=== PATIENT | female | born 1990 | race African-American/Black ===

== ENCOUNTER 2016-07-09 13:42 | Emergency (ER) | payer MEDICAID ==
[~2016-07-09] VITALS: Ht 154.9 cm; Wt 75.0 kg
[~2016-07-09 13:42] MED LIST: ABILIFY 10MG TA10 MG PO; BACTRIM DS 8001 TAB PO; BCP TD; BIRTH CONTROL PILLS; CALCIUM1 CAP PO; CEFTIN500 MG PO; CELEXA; CELEXA10 MG; CELEXA10 MG PO; CIPRO 500MG TA500 MG PO; CLARITIN 1010 MG/TAB PO; CONCERTA; CONCERTA18 MG; CONSERTA; FERATE27 MG PO; FLAGYL250 MG PO; FLAGYL500 MG PO; FLEXERIL 1010 MG/TAB PO; FOCALIN2.5 MG PO; GEODON40 MG PO; IMITREX 25MG TA25 MG PO; IRON 27 MG PO; IRON1 POW; IRON325 MG PO; LAMICTAL150 MG PO; LEVAQUIN 250MG250 MG PO; LORTAB 5/500 501 TAB PO; MACRODANTIN100 PO; METRONIDAZOLE500 MG PO; MOTRIN 600600 MG/TAB PO; NO HOME MEDICATIONS; PAMELOR PO; PRENATAL VITAMI1 T12 PO; PRENATAL1 TA3 PO; PROVENTIL0.09 MG/A1 IH; TRILEPTAL 150M150 MG PO; TRILEPTAL600 MG PO; ULTRAM 50MG TAB50 MG PO; VALTREX1 GM PO; WELLBUTRIN XL150 MG PO; ZITHROMAX Z PA250 MG PO; ZOFRAN4 MG PO; ZYRTEC 10MG10 MG PO; [UNRECOGNIZED DRUG - OTHER]
[2016-07-09 13:49] VITALS: BP 123/86; TEMP 98.2
[2016-07-09 14:46] LABS: BASO # 0.1 (0.0-0.2); BASO % 1.1 % (0.0-2.0); EOS % 0.5 % (0-4.0); GRAN # 2.6 (1.4-6.5); GRAN % 44.7 % (42.2-75.2); HEMATOCRIT 42.1 % (37.0-47.0); HEMOGLOBIN 13.9 g/dl (12.5-16.0); LYMPH # 2.6 (1.2-3.4); LYMPH % 45.9 % (20.0-51.0); MEAN CELL VOLUME 88 fl (80.0-100.0); MEAN CORPUSCULAR HEMOGLOBIN 29 pg (27.0-31.0); MEAN CORPUSCULAR HGB CONC 33 g/dl (33.0-37.0); MEAN PLATELET VOLUME 9.6 fl (7.4-10.4); MONO # 0.4 (0.1-0.6); MONO % 7.6 % (1.7-9.3); PLATELET COUNT 321 K/mm3 (130-400); RED BLOOD COUNT 4.81 M/mm3 (4.10-5.30); REDCELL DISTRIBUTION WIDTH-CV 13.2 % (11.5-14.5); WHITE BLOOD COUNT 5.7 K/mm3 (4.8-10.8)
[2016-07-09 14:57] LABS: AMPHETAMINE URINE NEGATIVE; BARBITURATES URINE NEGATIVE; BENZODIAZEPINES URINE NEGATIVE; BUPRENORPHINE URINE NEGATIVE; METHADONE URINE NEGATIVE; OPIATES URINE NEGATIVE; OXYCODONE URINE NEGATIVE; PHENCYCLIDINE URINE NEGATIVE; PROPOXYPHENE URINE NEGATIVE; THC CANNABINOIDS URINE NEGATIVE
[2016-07-09 15:06] LABS: ANION GAP 13 mmol/L (7-16); BLOOD UREA NITROGEN 11 mg/dL (7-17); CALCIUM 9.6 mg/dL (8.4-10.2); CARBON DIOXIDE 28 mmol/L (22-30); CHLORIDE 105 mmol/L (98-107); GLUCOSE 86 mg/dL (74-106); SODIUM 146 mmol/L (137-145)
[2016-07-09 15:16] LABS: ACETAMINOPHEN < 10 ug/mL (10-30); SALICYLATE < 1.0 mg/dL
[2016-07-09 18:09] VITALS: PULSE 74
== END 2016-07-09 18:10 | disposition home or self-care (01) ==
LOC: COL.ER 13:42
PROVIDERS: Nurse Practitioner
DX: R45.851 Suicidal ideations (principal); F60.9 Personality disorder, unspecified; F32.2 Major depressive disorder, single episode, severe without psychotic features

== ENCOUNTER 2018-05-19 13:16 | Emergency (ER) | payer MEDICAID ==
[~2018-05-19] VITALS: Ht 154.9 cm; Wt 85.9 kg
[2018-05-19 13:29] VITALS: BP 114/78; TEMP 98.2
[2018-05-19] MEDS ORDERED: PROAIR HFA0.09 MG/AC IH (14:43)
[2018-05-19] MEDS ORDERED: ZITHROMAX Z PA250 MG PO (14:43)
[2018-05-19] MEDS ORDERED: PREDNISONE20 MG PO (14:43)
[2018-05-19 14:52] VITALS: PULSE 76
== END 2018-05-19 14:52 | disposition home or self-care (01) ==
LOC: COL.ER 13:16
DX: J45.909 Unspecified asthma, uncomplicated (principal); F17.210 Nicotine dependence, cigarettes, uncomplicated; Z90.89 Acquired absence of other organs

== ENCOUNTER 2019-07-30 02:59 | Emergency (ER) | payer MEDICAID ==
[~2019-07-30] VITALS: Ht 177.8 cm; Wt 86.4 kg
[~2019-07-30 02:59] MED LIST changes: +PREDNISONE20 MG PO; +PROAIR HFA0.09 MG/AC IH
[2019-07-30 03:02] VITALS: BP 107/70; TEMP 97.7
[2019-07-30 04:03] VITALS: PULSE 79
== END 2019-07-30 04:07 | disposition home or self-care (01) ==
LOC: COL.ER 02:59
DX: S90.32XA Contusion of left foot, initial encounter (principal); M25.561 Pain in right knee; W01.0XXA Fall on same level from slipping, tripping and stumbling without subsequent striking against object, initial encounter

== ENCOUNTER 2019-12-09 20:48 | Emergency (ER) | payer MEDICAID ==
[~2019-12-09] VITALS: Ht 157.5 cm; Wt 84.1 kg
[2019-12-09 20:48] VITALS: TEMP 99.2
[2019-12-09 21:54] LABS: BASO % 0.4 % (0.0-2.0); EOS % 0.4 % (0-4.0); GRAN # 6.2 (1.4-6.5); HEMATOCRIT 39.7 % (37.0-47.0); HEMOGLOBIN 12.9 g/dl (12.5-16.0); LYMPH # 1.2 (1.2-3.4); LYMPH % 15.7 % (20.0-51.0); MEAN CELL VOLUME 89 fl (80.0-100.0); MEAN CORPUSCULAR HEMOGLOBIN 29 pg (27.0-31.0); MEAN CORPUSCULAR HGB CONC 33 g/dl (33.0-37.0); MEAN PLATELET VOLUME 9.7 fl (7.4-10.4); MONO # 0.3 (0.1-0.6); MONO % 4.4 % (1.7-9.3); PLATELET COUNT 240 K/mm3 (130-400); RED BLOOD COUNT 4.48 M/mm3 (4.10-5.30); REDCELL DISTRIBUTION WIDTH-CV 13.2 % (11.5-14.5)
[2019-12-09 22:17] LABS: ALANINE AMINOTRANSFERASE 30 U/L (4-34); ALBUMIN 4.5 gm/dL (3.5-5.0); ALCOHOL(ethanol),MEDICAL 144 mg/dL; ALKALINE PHOSPHATASE 138 U/L (50-136); ANION GAP 14 mmol/L (7-16); AST,SGOT 66 U/L (15-37); BILIRUBIN,TOTAL 0.3 mg/dL (0.0-1.0); BLOOD UREA NITROGEN 10 mg/dL (7-17); CALCIUM 9.8 mg/dL (8.4-10.2); CARBON DIOXIDE 18 mmol/L (22-30); CHLORIDE 111 mmol/L (98-107); CREATININE, serum 1.15 (0.52-1.25); GLUCOSE 96 mg/dL (74-106); POTASSIUM 3.8 mmol/L (3.4-5.0); SODIUM 143 mmol/L (137-145)
[2019-12-09 22:18] LABS: ACETAMINOPHEN < 10 ug/mL (10-30); SALICYLATE < 1.0 mg/dL
[2019-12-09 22:51] LABS: COLLECTION METHOD CLEAN CATCH
[2019-12-09 23:16] LABS: TRICYCLIC ANTIDEPRESS URINE NEGATIVE
[2019-12-10 01:16] LABS: MUCOUS Present /lpf; PH 5 (5-8); URINE APPEARANCE Hazy; URINE BACTERIA None Seen /hpf; URINE BILIRUBIN Negative (NEGATIVE); URINE BLOOD 1+ (NEGATIVE); URINE COLOR Yellow; URINE GLUCOSE Negative (NEGATIVE); URINE KETONE Negative (NEGATIVE); URINE LEUKOCYTE ESTERASE Negative (NEGATIVE); URINE NITRATE Negative (NEGATIVE); URINE PROTEIN(semi-quant) 1+ (NEGATIVE); URINE RBC 0-2 /hpf; URINE UROBILINOGEN Negative (NEGATIVE)
[2019-12-10 07:22] VITALS: BP 107/71; PULSE 81
== END 2019-12-10 07:28 | disposition home or self-care (01) ==
LOC: COL.ER 21:35
PROVIDERS: Emergency Medicine
DX: F29 Unspecified psychosis not due to a substance or known physiological condition (principal); F10.129 Alcohol abuse with intoxication, unspecified; Y90.6 Blood alcohol level of 120-199 mg/100 ml
CPT/HCPCS: J1200; J1630

== ENCOUNTER 2020-02-03 11:49 | Emergency (ER) | payer MEDICAID ==
[~2020-02-03] VITALS: Ht 152.4 cm; Wt 88.6 kg
[2020-02-03 11:53] VITALS: BP 120/86; TEMP 98.2
[2020-02-03 14:10] VITALS: PULSE 83
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
== END 2020-02-03 14:10 | disposition home or self-care (01) ==
LOC: COL.ER 11:49
DX: S09.90XA Unspecified injury of head, initial encounter (principal); F17.210 Nicotine dependence, cigarettes, uncomplicated; Y04.2XXA Assault by strike against or bumped into by another person, initial encounter

== ENCOUNTER 2020-07-24 09:45 | Emergency (ER) | payer MEDICAID ==
[~2020-07-24] VITALS: Ht 152.4 cm; Wt 80.5 kg
[2020-07-24 10:03] VITALS: BP 127/73; TEMP 98.1
[2020-07-24 10:31] LABS: COLLECTION METHOD CLEAN CATCH
[2020-07-24 10:46] LABS: MUCOUS Present /lpf; PH 6 (5-8); URINE APPEARANCE Hazy; URINE BACTERIA None Seen /hpf; URINE BILIRUBIN Negative (NEGATIVE); URINE BLOOD Negative (NEGATIVE); URINE COLOR Yellow; URINE GLUCOSE Negative (NEGATIVE); URINE KETONE Trace (NEGATIVE); URINE LEUKOCYTE ESTERASE 2+ (NEGATIVE); URINE NITRATE Negative (NEGATIVE); URINE PROTEIN(semi-quant) Negative (NEGATIVE); URINE UROBILINOGEN Negative (NEGATIVE)
[2020-07-24] MEDS ORDERED: FLAGYL500 MG PO (10:47)
[2020-07-24] MEDS ORDERED: CEPHALEXIN500 M1 PO (12:22)
[2020-07-24 12:46] VITALS: PULSE 91
== END 2020-07-24 12:47 | disposition home or self-care (01) ==
LOC: COL.ER 09:45
PROVIDERS: Physician Assistant
DX: O23.591 Infection of other part of genital tract in pregnancy, first trimester (principal); O23.41 Unspecified infection of urinary tract in pregnancy, first trimester; J45.909 Unspecified asthma, uncomplicated; F17.210 Nicotine dependence, cigarettes, uncomplicated; Z3A.01 Less than 8 weeks gestation of pregnancy; Z88.8 Allergy status to other drugs, medicaments and biological substances
CPT/HCPCS: J0696

== ENCOUNTER 2020-08-15 09:24 | Emergency (ER) | payer MEDICAID ==
[~2020-08-15] VITALS: Ht 152.4 cm; Wt 80.5 kg
[~2020-08-15 09:24] MED LIST changes: +CEPHALEXIN500 M1 PO
[2020-08-15 10:39] LABS: COLLECTION METHOD CLEAN CATCH
[2020-08-15 11:09] LABS: MUCOUS Present /lpf; PH 5 (5-8); URINE APPEARANCE Hazy; URINE BACTERIA None Seen /hpf; URINE BILIRUBIN Negative (NEGATIVE); URINE BLOOD Negative (NEGATIVE); URINE COLOR Amber; URINE GLUCOSE Negative (NEGATIVE); URINE KETONE 2+ (NEGATIVE); URINE LEUKOCYTE ESTERASE Negative (NEGATIVE); URINE NITRATE Negative (NEGATIVE); URINE PROTEIN(semi-quant) 1+ (NEGATIVE); URINE RBC 0-2 /hpf
[2020-08-15] MEDS ORDERED: MONISTAT 7 VAG45 GM VG (11:26)
[2020-08-15 11:57] VITALS: BP 117/74; PULSE 79; TEMP 98.4
== END 2020-08-15 11:57 | disposition home or self-care (01) ==
LOC: COL.ER 09:24
PROVIDERS: Nurse Practitioner Primary Care
DX: O98.811 Other maternal infectious and parasitic diseases complicating pregnancy, first trimester (principal); B37.3 Candidiasis of vulva and vagina; O26.891 Other specified pregnancy related conditions, first trimester; R10.31 Right lower quadrant pain; R10.32 Left lower quadrant pain; O99.331 Smoking (tobacco) complicating pregnancy, first trimester; F17.210 Nicotine dependence, cigarettes, uncomplicated; Z3A.09 9 weeks gestation of pregnancy; Z88.8 Allergy status to other drugs, medicaments and biological substances
CPT/HCPCS: J7030

== ENCOUNTER 2020-09-02 23:24 | Emergency (ER) | payer MEDICAID ==
[~2020-09-02] VITALS: Ht 152.4 cm; Wt 82.7 kg
[~2020-09-02 23:24] MED LIST changes: +MONISTAT 7 VAG45 GM VG
[2020-09-02 23:35] VITALS: TEMP 98.7
[2020-09-03 01:04] VITALS: BP 120/68; PULSE 68
== END 2020-09-03 00:58 | disposition home or self-care (01) ==
LOC: COL.ER 23:24
DX: O9A.211 Injury, poisoning and certain other consequences of external causes complicating pregnancy, first trimester (principal); S00.83XA Contusion of other part of head, initial encounter; S00.531A Contusion of lip, initial encounter; Z88.8 Allergy status to other drugs, medicaments and biological substances; Z3A.12 12 weeks gestation of pregnancy; Y04.8XXA Assault by other bodily force, initial encounter

== ENCOUNTER 2020-10-28 20:10 | Emergency (ER) | payer MEDICAID ==
[~2020-10-28] VITALS: Ht 152.4 cm; Wt 80.9 kg
[2020-10-28 20:36] LABS: COLLECTION METHOD CLEAN CATCH
[2020-10-28 20:45] LABS: PH 7 (5-8); URINE APPEARANCE Clear; URINE BACTERIA None Seen /hpf; URINE BILIRUBIN Negative (NEGATIVE); URINE BLOOD Negative (NEGATIVE); URINE COLOR Yellow; URINE GLUCOSE Negative (NEGATIVE); URINE KETONE Negative (NEGATIVE); URINE LEUKOCYTE ESTERASE Negative (NEGATIVE); URINE NITRATE Negative (NEGATIVE); URINE PROTEIN(semi-quant) Negative (NEGATIVE); URINE RBC 0-2 /hpf; URINE UROBILINOGEN >=4.0 mg/dL (NEGATIVE)
--- NOTE | 2020-10-28 21:30 | NUR ---
G3L3 at 20.3 weeks gestation being evaluated in the emergency room for abdominal pain. This nurse was called for a 10 minutue toco evaulation for uterine contractions. EFM explained to patient and toco applied from [id number]. No contractions noted per toco or patient reports. FHR 145 bpm per doppler.
[2020-10-29 00:18] LABS: BASO % 0.5 % (0.0-2.0); EOS # 0.1 (0.0-0.7); EOS % 2.5 % (0-4.0); GRAN # 2.1 (1.4-6.5); GRAN % 47.4 % (42.2-75.2); HEMOGLOBIN 10.7 g/dl (12.5-16.0); LYMPH # 1.8 (1.2-3.4); LYMPH % 40.1 % (20.0-51.0); MEAN CELL VOLUME 86 fl (80.0-100.0); MEAN CORPUSCULAR HEMOGLOBIN 29 pg (27.0-31.0); MEAN CORPUSCULAR HGB CONC 33 g/dl (33.0-37.0); MEAN PLATELET VOLUME 10.4 fl (7.4-10.4); MONO # 0.4 (0.1-0.6); MONO % 9.3 % (1.7-9.3); PLATELET COUNT 272 K/mm3 (130-400); RED BLOOD COUNT 3.72 M/mm3 (4.10-5.30); REDCELL DISTRIBUTION WIDTH-CV 12.9 % (11.5-14.5)
[2020-10-29 00:28] LABS: ALBUMIN 3.2 gm/dL (3.5-5.0); BILIRUBIN,TOTAL 0.3 mg/dL (0.0-1.0); C-REACTIVE PROTEIN 1.3 mg/dL (0.0-0.9); CALCIUM 8.6 mg/dL (8.4-10.2); CREATININE, serum 0.5 (0.52-1.25); POTASSIUM 3.8 mmol/L (3.4-5.0); TOTAL PROTEIN 6.2 gm/dL (6.4-8.2)
[2020-10-29 00:29] LABS: HEMATOCRIT 32.1 % (37.0-47.0)
[2020-10-29 01:09] VITALS: BP 101/63; PULSE 75; TEMP 98.5
== END 2020-10-29 01:09 | disposition home or self-care (01) ==
LOC: COL.ER 20:10
PROVIDERS: Nurse Practitioner Primary Care
DX: O26.892 Other specified pregnancy related conditions, second trimester (principal); M54.5 Low back pain; R10.9 Unspecified abdominal pain; Z3A.20 20 weeks gestation of pregnancy; Z88.8 Allergy status to other drugs, medicaments and biological substances
CPT/HCPCS: J7120

== ENCOUNTER 2020-11-21 11:30 | Outpatient (CLI) | payer MEDICAID ==
[2020-11-21] VITALS (8 sets, daily range): BP systolic 87–107; BP diastolic 50–67; PULSE 77–103; TEMP 98.3
[~2020-11-21] VITALS: Wt 81.8 kg
[2020-11-21] MEDS ORDERED: DINO-LIFE1 CTB PO (11:45)
[2020-11-21] MEDS ORDERED: LEXAPRO20 MG PO (11:45)
== END 2020-11-21 15:55 | disposition home or self-care (01) ==
LOC: LDRO 11:30 → LDR 11:35 → LDRO 15:55
DX: O91.212 Nonpurulent mastitis associated with pregnancy, second trimester (principal); Z3A.23 23 weeks gestation of pregnancy
CPT/HCPCS: OP

== ENCOUNTER 2021-03-03 11:28 | Outpatient (CLI) | payer MEDICAID ==
[~2021-03-03] VITALS: Ht 157.5 cm; Wt 83.6 kg
[~2021-03-03 11:28] MED LIST changes: +DINO-LIFE1 CTB PO; +LEXAPRO20 MG PO
--- NOTE | 2021-03-03 11:40 | NUR ---
Pt arrived on unit via wheelchair escorted by boyfriend and with complaints of contractions. Pt denies any leaking of fluid but reports some pink discharge when she goes to bathroom and reports decreased movement. EFM and toco monitors started. Vital signs WNL. SVE by this RN /-3. Audible movement noted and pt reports feeling the movement as well.
--- NOTE | 2021-03-03 11:50 | NUR ---
on the unit. FHR tracing and prenatals reviewed. Orders for labor assessment received.
[2021-03-03 12:15] VITALS: BP 111/68; PULSE 104; TEMP 98.1
== END 2021-03-03 13:00 | disposition home or self-care (01) ==
LOC: LDRO 11:28 → LDR 11:55 → LDRO 13:00
DX: O62.9 Abnormality of forces of labor, unspecified (principal); Z3A.38 38 weeks gestation of pregnancy
CPT/HCPCS: OP

== ENCOUNTER 2021-03-06 21:59 | Inpatient (IN) | payer MEDICAID ==
[~2021-03-06] VITALS: Ht 160 cm; Wt 83.6 kg
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
[2021-03-06 22:30] VITALS: BP 94/51; PULSE 115; TEMP 99.3
[2021-03-06 23:00] VITALS: PULSE 119
[2021-03-06 23:30] VITALS: PULSE 116
[2021-03-07] VITALS (31 sets, daily range): BP systolic 67–112; BP diastolic 37–76; PULSE 87–126; TEMP 97.5–98.7
[2021-03-07 00:30] LABS: HEMATOCRIT 33.8 % (37.0-47.0); HEMOGLOBIN 11.3 g/dl (12.5-16.0); MEAN CELL VOLUME 83 fl (80.0-100.0); MEAN CORPUSCULAR HEMOGLOBIN 28 pg (27.0-31.0); MEAN CORPUSCULAR HGB CONC 33 g/dl (33.0-37.0); MEAN PLATELET VOLUME 10.2 fl (7.4-10.4); PLATELET COUNT 206 K/mm3 (130-400); RED BLOOD COUNT 4.08 M/mm3 (4.10-5.30); REDCELL DISTRIBUTION WIDTH-CV 13.8 % (11.5-14.5)
[2021-03-07 00:57] LABS: BAND 20 % (0-10); LYMPHOCYTE 3 % (20.0-51.0); NEUTROPHILS 76 % (42.0-75.2); PLATELET ESTIMATE NORMAL (NORMAL)
--- NOTE | 2021-03-07 05:15 | NUR ---
0515- PATIENT CALLED OUT STATING SHE WAS FEELING LOTS OF PRESSURE AND LIKE SHE NEEDED TO PUSH. THIS RN TO BEDSIDE. SVE PATIENT IS COMPLETE AND +1. REMOVED CASTELLON CATHETER AT THIS TIME AND HAD PATIENT GIVE A SMALL PRACTICE PUSH. HEAD DECENDED WELL. PROVIDER AT NURSING STATION MONITORING STRIP. CALLED NURSERY TO LET THEM KNOW WE ARE READY FOR DELIVERY AFTER NOTIFYING PROVIDER WE ARE READY. THIS RN STATED AT BEDSIDE TO HELP PATIENT ASSIST IN GETTING READY FOR DELIVERY. 0522- DR. ROLES AND NURSERY TO BEDSIDE AND ASSISTING IN PREPPING ROOM. 0527- OF VIABLE MALE INFANT. NUCHAL CORDX2 NOTED AT DELIVERY. INFANT PLACED TO MOTHER ABDOMEN WHERE NURSERY NURSE ASSUMES CARE AT THIS TIME. 0530- OF PLACENTA. PITOCIN STARTED PER PROTOCOL AT 333ML/HR. FUNDUS MASSAGED TO FIRM BY PROVIDER. PATIENT NOTED TO BE INTACT BY PROVIDER. VITALS STABLE, ROOM AND PATIENT CLEANED UP AND PUT BACK TOGETHER. NEW PERIPAD AND CHUX UNDER PATIENT. RECOVERY STARTED.
[2021-03-08 01:35] VITALS: BP 100/60; PULSE 88; TEMP 97.6
[2021-03-08 08:00] VITALS: BP 88/55; PULSE 72; TEMP 97.8
[2021-03-08] MEDS ORDERED: MOTRIN 800800 MG/TAB PO (08:01)
--- NOTE | 2021-03-08 08:56 | NUR ---
Initial visit; Parents thanked Slate Mixer for offering congratulations and God's blessings for the of their son. Slate Mixer thanked family for choosing [facility].
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
--- NOTE | 2021-03-08 14:07 | NUR ---
1310 DISCHARGE INSTRUCTIONS REVIEWED WITH PATIENT. PATIENT VERBALIZED UNDERSTANDING. 1340 ALL PERSONAL BELONGINGS GATHERED FROM PATIENT ROOM. PATIENT LEFT AMBULATORY AND IN NO APPARENT DISTRESS. PATIENT ACCOMPANIED BY SIGNIFICANT OTHER AND THIS RN.
== END 2021-03-08 13:40 | disposition home or self-care (01) | DRG 807 ==
LOC: LDRO 21:59 → LDR 23:17 → OB 23:17
PROVIDERS: Obstetrics & Gynecology; ADMIT Obstetrics & Gynecology
PROC: 10E0XZZ Delivery of Products of Conception, External Approach (ICD-10-PCS; principal; 2021-03-07)
DX: O99.824 Streptococcus B carrier state complicating childbirth (principal); Z37.0 Single live birth; O26.53 Maternal hypotension syndrome, third trimester; O67.9 Intrapartum hemorrhage, unspecified; O99.344 Other mental disorders complicating childbirth; F41.9 Anxiety disorder, unspecified; F31.9 Bipolar disorder, unspecified; F90.9 Attention-deficit hyperactivity disorder, unspecified type; F43.10 Post-traumatic stress disorder, unspecified; O69.81X0 Labor and delivery complicated by cord around neck, without compression, not applicable or unspecified; O99.52 Diseases of the respiratory system complicating childbirth; J45.909 Unspecified asthma, uncomplicated; Z3A.39 39 weeks gestation of pregnancy
CPT/HCPCS: J2210; J2540; J2590; J7120

== ENCOUNTER 2021-07-06 07:52 | Emergency (ER) | payer MEDICAID ==
[~2021-07-06] VITALS: Ht 167.6 cm; Wt 79.5 kg
[~2021-07-06 07:52] MED LIST changes: +MOTRIN 800800 MG/TAB PO
[2021-07-06 07:53] VITALS: TEMP 98.1
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
[2021-07-06 12:55] VITALS: BP 122/91; PULSE 80
== END 2021-07-06 12:55 | disposition home or self-care (01) ==
LOC: COL.ER 07:52
DX: S09.90XA Unspecified injury of head, initial encounter (principal); S01.01XA Laceration without foreign body of scalp, initial encounter; S80.01XA Contusion of right knee, initial encounter; S40.812A Abrasion of left upper arm, initial encounter; F32.A Depression, unspecified; F43.10 Post-traumatic stress disorder, unspecified; W22.8XXA Striking against or struck by other objects, initial encounter; Z79.899 Other long term (current) drug therapy

== ENCOUNTER 2021-07-16 10:11 | Emergency (ER) | payer MEDICAID ==
[2021-07-16 10:34] VITALS: BP 112/76; PULSE 81; TEMP 98.2
== END 2021-07-16 10:48 | disposition home or self-care (01) ==
LOC: COL.ER 10:11
DX: Z48.02 Encounter for removal of sutures (principal)

== ENCOUNTER 2022-03-07 16:09 | Emergency (ER) | payer MEDICAID ==
[~2022-03-07] VITALS: Ht 152.4 cm; Wt 83.6 kg
[2022-03-07 16:16] VITALS: TEMP 98.7
[2022-03-07 18:00] VITALS: BP 112/67; PULSE 98
[2022-03-07] MEDS ORDERED: DECADRON 4MG TAB4 MG PO (18:00)
== END 2022-03-07 18:10 | disposition home or self-care (01) ==
LOC: COL.ER 16:09
DX: O99.513 Diseases of the respiratory system complicating pregnancy, third trimester (principal); J45.901 Unspecified asthma with (acute) exacerbation; J00 Acute nasopharyngitis [common cold]; Z3A.29 29 weeks gestation of pregnancy
CPT/HCPCS: J8540